=== PATIENT | female | born 1945 | race Caucasian/White ===

== ENCOUNTER 2016-10-31 08:08 | Day surgery (SDC) | payer OTHER ==
[2016-10-28 10:51] VITALS: BMI 25.1
[2016-10-31] MEDS ORDERED: PROPOFOL 20 ML ONE ×2 (08:44)
[2016-10-31 08:46] VITALS: TEMP 98.4
[2016-10-31 10:08] VITALS: BP 123/83; PULSE 81
== END 2016-10-31 10:10 | disposition home or self-care (01) ==
LOC: FASU-ENDO 08:08
PROVIDERS: ATTEND Internal Medicine Gastroenterology
PROC: 0DJD8ZZ Inspection of Lower Intestinal Tract, Via Natural or Artificial Opening Endoscopic (ICD-10-PCS; principal; 2016-10-31 09:23)
DX: Z86.010 Personal history of colon polyps (principal); K57.30 Diverticulosis of large intestine without perforation or abscess without bleeding

== ENCOUNTER 2022-11-21 07:43 | Day surgery (SDC) | payer OTHER ==
[2022-11-17 14:14] VITALS: BMI 26.2
[2022-11-21 08:06] VITALS: RESP 16
[2022-11-21 08:53] VITALS: TEMP 98.1
[2022-11-21 10:03] VITALS: BP 118/66; PULSE 70
== END 2022-11-21 10:05 | disposition home or self-care (01) ==
LOC: FASU-ENDO 07:43
PROVIDERS: ATTEND Internal Medicine Gastroenterology
PROC: 0DJD8ZZ Inspection of Lower Intestinal Tract, Via Natural or Artificial Opening Endoscopic (ICD-10-PCS; principal; 2022-11-21 08:28)
DX: Z12.11 Encounter for screening for malignant neoplasm of colon (principal); K57.30 Diverticulosis of large intestine without perforation or abscess without bleeding; Z86.010 Personal history of colon polyps; Z80.0 Family history of malignant neoplasm of digestive organs